=== PATIENT | male | born 2000 | race Asian ===

== ENCOUNTER 2019-04-02 16:05 | Emergency (ER) | payer OTHER ==
--- NOTE | 2019-04-02 16:39 | ED ---
Throat Pain/Nasal Congestion - HPI Summary HPI Summary: Patient complains of swollen lumps in neck 3 weeks, sore throat for 5 days which resolved 3 days ago, and cold symptoms times last 2 days. Denies known fever, neck stiffness, CP, SOB, N/V/D, abdominal pain, change in urine, change in BM. Medical history is none. No home meds - History of Current Complaint Chief Complaint: EDThroatPain Time Seen by Provider: 04/02/19 16:24 Hx Obtained From: Patient Onset/Duration: Gradual Onset, Lasting Weeks Severity: Mild Associated Signs And Symptoms: Positive: Negative Cough: Nonproductive - Allergies/Home Medications Allergies/Adverse Reactions: Allergies Allergy/AdvReac Type Severity Reaction Status Date / Time azithromycin [From Zithromax] Allergy GI Upset Verified 04/02/19 16:11 PMH/Surg Hx/FS Hx/Imm Hx Endocrine/Hematology History: Denies: Hx Anticoagulant Therapy Cardiovascular History: Denies: Hx Pacemaker/ICD GI History: Denies: Hx Cirrhosis History: Denies: Hx Dialysis Sensory History: Denies: Hx Eye Prosthesis Opthamlomology History: Denies: Hx Legally Blind EENT History: Denies: Hx Deafness Neurological History: Denies: Hx Dementia Infectious Disease History: No Infectious Disease History: Denies: Traveled Outside the [place] in Last 30 Days - Family History Known Family History: Positive: Non-Contributory - Social History Alcohol Use: Occasionally Substance Use Type: Reports: None Hx Tobacco Use: No Review of Systems Constitutional: Negative Eyes: Negative Positive: Other Cardiovascular: Negative Positive: Cough Gastrointestinal: Negative Genitourinary: Negative Musculoskeletal: Negative Skin: Negative Neurological/Mental Status: Negative Psychological: Normal All Other Systems Reviewed And Are Negative: Yes Physical Exam - Summary Physical Exam Summary: Swollen bilateral lymph nodes under jaw and along trachea. ENT exam otherwise unremarkable. Triage Information Reviewed: Yes Vital Signs On Initial Exam: Initial Vitals Temp Pulse Resp BP Pulse Ox 97.3 F 84 19 122/75 99 04/02/19 16:08 04/02/19 16:08 04/02/19 16:08 04/02/19 16:08 04/02/19 16:08 Vital Signs Reviewed: Yes Appearance: Positive: Well-Appearing Skin: Positive: Warm Head/Face: Positive: Normal Head/Face Inspection Eyes: Positive: Normal ENT: Positive: Normal ENT inspection Neck: Positive: Supple. Negative: No Lymphadenopathy Respiratory/Lung Sounds: Positive: Clear to Auscultation Cardiovascular: Positive: Normal Abdomen Description: Positive: Nontender Musculoskeletal: Positive: Normal Neurological: Positive: Normal Psychiatric: Positive: Normal AVPU Assessment: Alert - [place] Coma Scale Best Eye Response: 4 - Spontaneous Best Motor Response: 6 - Obeys Commands Best Verbal Response: 5 - Oriented Coma Scale Total: 15 Procedures - Sedation Patient Received Moderate/Deep Sedation with Procedure: No Diagnostics - Vital Signs Vital Signs Temp Pulse Resp BP Pulse Ox 04/02/19 16:08 97.3 F 84 19 122/75 99 - Laboratory Lab Statement: Any lab studies that have been ordered have been reviewed, and results considered in the medical decision making process. EENT Course/Dx - Course Course Of Treatment: Patient complains of swollen lumps in neck 3 weeks, sore throat for 5 days which resolved 3 days ago, and cold symptoms times last 2 days. Denies known fever, neck stiffness, CP, SOB, N/V/D, abdominal pain, change in urine, change in BM. Medical history is none. Vital signs within normal limits. Ultrasound neck positive for normal swollen lymph nodes. - Diagnoses Provider Diagnoses: Swollen lymph nodes Discharge ED - Sign-Out/Discharge Documenting (check all that apply): Patient Departure - Discharge Plan Condition: Stable Disposition: HOME Patient Education Materials: Lymphadenopathy (ED) Referrals: [facility] [Outside] No Primary Care Phys,NOPCP [Primary Care Provider] - Additional Instructions: Follow-up with primary care. Return to the ED for any new or worsening symptoms. - Billing Disposition and Condition Condition: STABLE Disposition: Home - Attestation Statements Provider Attestation: I was available for consultation for this patient. I did not evaluate the patient or participate in any medical decision making or disposition decisions unless I am specifically named in the chart as having consulted on the patient. If I have consulted on the patient, please see my own ED note on the patient encounter. Delta Youssef MD
[2019-04-02 17:01] LABS: Rapid Strep Molecular Negative (Negative)
[2019-04-02 17:59] VITALS: BP 111/68
== END 2019-04-02 17:58 | disposition home or self-care (01) ==
LOC: ED 16:05
DX: R59.0 Localized enlarged lymph nodes (principal); Z88.1 Allergy status to other antibiotic agents
CPT/HCPCS: 76536; 87651; 99281

== ENCOUNTER 2019-04-15 11:41 | Emergency (ER) | payer OTHER ==
--- OUTSIDE RECORDS SUMMARY | 2019-04-15 12:07 | XMS REPORT | Continuity of Care Document ---
:2000 External Reference #:[id number] Author Name Margaret Escobedo PA-C Address [address] [place] [address] Care Team Providers Name Role Phone [facility] Care Team Information Counselling Psychologist Problems Description No Information Available Social History Type Date Description Comments Sex Unknown Tobacco Use Start: Unknown Never Smoked Cigarettes Tobacco Use Start: Unknown Never Smoked Cigars Tobacco Use Start: Unknown Never Smoked A Pipe Smokeless Tobacco Never Used Smokeless Tobacco ETOH Use Denies alcohol use Tobacco Use Start: Unknown Patient has never smoked Smoking Status Reviewed: 03/18/19 Patient has never smoked Allergies, Adverse Reactions, Alerts Description No Known Drug Allergies Medications Active Medications SIG Qnty Indications Ordering Provider Date Clindamycin HCL take 1 pill 3 30caps R59.0 Jamaal Guzmán, 03/19/2019 300mg times a day for MD Capsules 10 days History Medications No Active Medications Unknown 03/19/2019 - 03/19/2019 No Active Medications Unknown 01/11/2019 - 01/11/2019 Ciprodex 4 drops infected 7.500ml Jamaal Degroot 01/11/2019 - 0.3-0.1% ear twice a day MD Ramirez 03/19/2019 Suspension Immunizations Description No Information Available Vital Signs Date Vital Result Comment 03/19/2019 3:17pm Weight 125.00 lb Weight 56.700 kg Height 66 inches 5'6" Height in cm's 167.6 cm BMI (Body Mass Index) 20.2 kg/m2 01/11/2019 1:43pm Weight 125.00 lb Weight 56.700 kg Height 66 inches 5'6" Height in cm's 167.6 cm BMI (Body Mass Index) 20.2 kg/m2 Results Description No Information Available Procedures Description No Information Available Medical Devices Description No Information Available Encounters Type Date Location Provider Dx Diagnosis Office Visit 01/17/2019 [place],After Margaret Escobedo H60.321 Hemorrhagic otitis 9:00a 02/07/07 [place] externa, right ear Office Visit 01/11/2019 [place] Jamaal Degroot H60.321 Hemorrhagic otitis 2:00p 02/07/07 MD Ramirez externa, right ear Assessments Date Code Description Provider 03/19/2019 R59.0 Localized enlarged lymph nodes Margaret Escobedo PA-C 03/19/2019 K13.70 Unspecified lesions of oral mucosa Margaret Escobedo PA-C 01/17/2019 H60.321 Hemorrhagic otitis externa, right ear Margaret Escobedo PA-C 01/11/2019 H60.321 Hemorrhagic otitis externa, right ear Jamaal Guzmán MD Plan of Treatment Future Appointment(s):04/03/2019 3:30 pm - Jamaal Guzmán MD at [facility] [place] MichaelCR59.0 Localized enlarged lymph nodesNew Medication:Clindamycin HCL 300 mg - take 1 pill 3 times a day for 10 daysK13.70 Unspecified lesions of oral mucosaFollow up:[facility] Functional Status Description No Information Available Mental Status Description No Information Available Referrals Description No Information Available
--- OUTSIDE RECORDS SUMMARY | 2019-04-15 12:07 | XMS REPORT | Continuity of Care Document ---
:2000 External Reference #:[id number] Author Name Jamaal Guzmán MD Address [address] [place] [address] Care Team Providers Name Role Phone [facility] Care Team Information Rod Filler [phone] Problems Description No Information Available Social History [...] Date Location Provider Dx Diagnosis Office Visit 04/03/2019 [place] Jamaal Degroot R59.0 Localized enlarged 3:30p 02-07-2019 MD Ramirez lymph nodes K13.70 Unspecified lesions of oral mucosa Office Visit 01/17/2019 [place],After Margaret Escobedo H60.321 Hemorrhagic 9:00a 02/07/07 [facility] otitis externa, right ear Office Visit 01/11/2019 [place] Jamaal Degroot H60.321 Hemorrhagic 2:00p 02/07/07 MD Ramirez otitis externa, right ear Assessments Date Code Description Provider 04/03/2019 R59.0 Localized enlarged lymph nodes Jamaal Guzmán MD 04/03/2019 K13.70 Unspecified lesions of oral mucosa Jamaal Guzmán MD 03/19/2019 R59.0 Localized enlarged lymph nodes Margaret Escobedo PA-C 03/19/2019 K13.70 Unspecified lesions of oral mucosa Margaret Escobedo PA-C 01/17/2019 H60.321 Hemorrhagic otitis externa, right ear Margaret Escobedo PA-C 01/11/2019 H60.321 Hemorrhagic otitis externa, right ear Jamaal Guzmán MD Plan of Treatment No Information Available Functional Status Description No Information Available Mental Status Description No Information Available Referrals Description No Information Available
[2019-04-15 12:41] LABS: Influenza A Molecular Negative (Negative); Influenza B Molecular Negative (Negative)
--- NOTE | 2019-04-15 13:06 | ED ---
Influenza-Like Illness - HPI Summary HPI Summary: This pt is a 18 Y/O M presenting to [facility] with a CC of influenza-like symptoms. He states that on 04/12/2019 he started to feel phlegm in his throat and has had SOB. He states that yesterday 04/14/2019 he became more SOB, developed a fever with chills, sore throat, and a headache. Currently he states that he has aggravating chest tightness when he takes a deep breath. He denies any myalgia, N/V/D, and generalized weakness. He states that he was recently in [facility] and denies any contact with anyone who was sick. He denies any PMHx that is pertinent. He has a FHx of HTN and DM. He denies any travel in the last 30 days. - History of Current Complaint Chief Complaint: EDFluSymptoms Time Seen by Provider: 04/15/19 11:48 Hx Obtained From: Patient Onset/Duration: Sudden Onset - 3, Lasting Days, Still Present Severity: Moderate Associated Signs & Symptoms: Negative - myalgia, N/V/D, and generalized weakness., Fever - 100.3 F, Sore Throat, Headache Related Hx: Possible Flu/Infectious Exposure - States recent visit to [facility] - Allergy/Home Medications Allergies/Adverse Reactions: Allergies Allergy/AdvReac Type Severity Reaction Status Date / Time azithromycin [From Zithromax] Allergy GI Upset Verified 04/15/19 11:45 Home Medications: Home Medications NK [No Home Medications Reported] 04/15/19 [History Confirmed 04/15/19] PMH/Surg Hx/FS Hx/Imm Hx Previously Healthy: Yes Endocrine/Hematology History: Denies: Hx Anticoagulant Therapy, Hx Diabetes Cardiovascular History: Denies: Hx Hypertension, Hx Pacemaker/ICD Respiratory History: Denies: Hx Asthma GI History: Denies: Hx Cirrhosis History: Denies: Hx Dialysis Sensory History: Denies: Hx Eye Prosthesis, Hx Legally Blind, Hx Deafness Opthamlomology History: Denies: Hx Eye Prosthesis, Hx Legally Blind Neurological History: Denies: Hx Dementia - Cancer History Hx Chemotherapy: No Hx Radiation Therapy: No - Surgical History Surgical History: None - Immunization History Immunizations Up to Date: Yes Infectious Disease History: No Infectious Disease History: Denies: Traveled Outside the [place] in Last 30 Days - Family History Known Family History: Positive: Hypertension, Diabetes - Social History Occupation: Student - [employer], [place] Alcohol Use: Occasionally Hx Substance Use: No Substance Use Type: Reports: None Hx Tobacco Use: No Smoking Status (MU): Never Smoked Tobacco Review of Systems Positive: Fever - 100.3 F, Chills Positive: Sore Throat Positive: Chest Pain Positive: Shortness Of Breath Negative: Vomiting, Diarrhea, Nausea Negative: Myalgia Positive: Headache. Negative: Weakness All Other Systems Reviewed And Are Negative: Yes Physical Exam - Summary Physical Exam Summary: VITAL SIGNS: Reviewed. GENERAL: Patient is a well-developed and nourished male who is lying comfortable in the stretcher. Patient is not in any acute respiratory distress. HEAD AND FACE: No signs of trauma. No ecchymosis, hematomas or skull depressions. No sinus tenderness. EYES: PERRLA, EOMI x 2, No injected conjunctiva, no nystagmus. EARS: Hearing grossly intact. Ear canals and tympanic membranes are within normal limits. MOUTH: Oropharynx within normal limits. NECK: Supple, trachea is midline, no adenopathy, no JVD, no carotid bruit, no c- spine tenderness, neck with full ROM. CHEST: Symmetric, no tenderness at palpation. LUNGS: Clear to auscultation bilaterally. No wheezing or crackles. CVS: Regular rate and rhythm, S1 and S2 present, no murmurs or gallops appreciated. ABDOMEN: Soft, non-tender. No signs of distention. No rebound, no guarding, and no masses palpated. Bowel sounds are normal. EXTREMITIES: FROM in all major joints, no edema, no cyanosis or clubbing. NEURO: Alert and oriented x 3. No acute neurological deficits. Speech is normal and follows commands. SKIN: Dry and warm. Triage Information Reviewed: Yes Vital Signs On Initial Exam: Initial Vitals Temp Pulse Resp BP Pulse Ox 100.3 F 99 16 134/69 95 04/15/19 11:43 04/15/19 11:43 04/15/19 11:43 04/15/19 11:43 04/15/19 11:43 Vital Signs Reviewed: Yes Procedures - Sedation Patient Received Moderate/Deep Sedation with Procedure: No Diagnostics - Vital Signs Vital Signs Temp Pulse Resp BP Pulse Ox 04/15/19 11:43 100.3 F 99 16 134/69 95 - Laboratory Lab Results: Lab Results 04/15/19 Range/Units 12:19 Influenza A (Rapid) Negative (Negative) Influenza B (Rapid) Negative (Negative) Lab Statement: Any lab studies that have been ordered have been reviewed, and results considered in the medical decision making process. - Radiology CXR Radiology Interpretation Completed By: Radiologist Summary of Radiographic Findings: No acute cardiopulmonary process by radiograph. ED physician has reviewed this report. Flu Symptom Course/Dx - Course Course Of Treatment: This pt is a 18 Y/O M presenting to [facility] with a CC of influenza-like symptoms. He states that on 04/12/2019 he started to feel phlegm in his throat and has had SOB. He states that yesterday 04/14/2019 he became more SOB, developed a fever with chills, sore throat, and a headache. Currently he states that he has aggravating chest tightness when he takes a deep breath. His PE found no acute abnormalities. CXR: No acute cardiopulmonary process by radiograph. Pt will be discharged home with a Dx of viral syndrome. - Diagnoses Provider Diagnoses: Acute viral syndrome Discharge ED - Sign-Out/Discharge Documenting (check all that apply): Patient Departure - discharge - Discharge Plan Condition: Good Disposition: HOME Patient Education Materials: Viral Syndrome (ED) Forms: *School Release Referrals: [facility] [Provider Group] - 2 Days Additional Instructions: PLEASE FOLLOW UP WITH [facility] IN 1-3 DAYS AND RETURN TO THE EMERGENCY DEPARTMENT FOR ANY NEW OR WORSENING SYMPTOMS. Stay home from school for the next 3 days in order to rest. Drink plenty of fluids and continue eating. - Attestation Statements Document Initiated by Scribe: Yes Documenting Scribe: Kamran Farrell Provider For Whom Scribe is Documenting (Include Credential): Sixto Morrell MD Scribe Attestation: Kamran Rosa, scribed for Sixto Morrell MD on 04/15/19 at 1406. Status of Scribe Document: Ready
[2019-04-15 14:24] VITALS: BP 126/63
== END 2019-04-15 14:23 | disposition home or self-care (01) ==
LOC: ED 11:41
DX: B34.9 Viral infection, unspecified (principal); R51 Headache; R06.02 Shortness of breath; R07.9 Chest pain, unspecified; R50.9 Fever, unspecified; Z88.1 Allergy status to other antibiotic agents
CPT/HCPCS: 71046; 99282

== ENCOUNTER 2019-04-17 00:13 | Emergency (ER) | payer OTHER ==
[2019-04-17 01:19] LABS: Influenza A Molecular Negative (Negative); Influenza B Molecular Negative (Negative)
--- NOTE | 2019-04-17 02:43 | ED ---
Influenza-Like Illness - HPI Summary HPI Summary: Patient is a 18 y/o M presenting to [facility] with complaints of subjective fever, cough, congestion. He states that he experienced onset of congestion on 04/12/19, cough and fever on 04/15/19. Patient was evaluated at [facility] on 04/15/19 for his Sx, patient's influenza testing was negative, CXR was negative. Patient was discharged to home with Dx of viral syndrome. Patient returns today as he states that he still feels feverish. He has not measured his temperature and no fever noted on initial vitals. No decreased PO intake reported. Patient states that he travelled to [facility] last week and is concerned that he was exposed to the novel coronavirus. No PMHx, no daily medications, no PSHx, no tobacco, alcohol, or substance usage is reported. Home medications and allergies are reviewed. - History of Current Complaint Chief Complaint: EDUpperRespComplaint Time Seen by Provider: 04/17/19 02:07 Hx Obtained From: Patient Onset/Duration: Lasting Days Severity: Mild Associated Signs & Symptoms: Fever, Cough, Nasal Congestion - Allergy/Home Medications Allergies/Adverse Reactions: Allergies Allergy/AdvReac Type Severity Reaction Status Date / Time azithromycin [From Zithromax] AdvReac Mild GI Upset Verified 04/17/19 02:05 Home Medications: Home Medications NK [No Home Medications Reported] 04/15/19 [History Confirmed 04/17/19] PMH/Surg Hx/FS Hx/Imm Hx Endocrine/Hematology History: Denies: Hx Anticoagulant Therapy, Hx Diabetes Cardiovascular History: Denies: Hx Hypertension, Hx Pacemaker/ICD Respiratory History: Denies: Hx Asthma GI History: Denies: Hx Cirrhosis History: Denies: Hx Dialysis Sensory History: Denies: Hx Eye Prosthesis, Hx Legally Blind, Hx Deafness Opthamlomology History: Denies: Hx Eye Prosthesis, Hx Legally Blind Neurological History: Denies: Hx Dementia - Cancer History Hx Chemotherapy: No Hx Radiation Therapy: No Infectious Disease History: No Infectious Disease History: Denies: Traveled Outside the [place] in Last 30 Days - Family History Known Family History: Positive: Hypertension, Diabetes - Social History Alcohol Use: Occasionally Hx Substance Use: No Substance Use Type: Reports: None Hx Tobacco Use: No Smoking Status (MU): Never Smoked Tobacco - Additional Comments History Additional Comments: No PMHx No PSHx Review of Systems Positive: Fever - reported, no fever based off of initial vitals Positive: Other - Congestion Positive: Cough Gastrointestinal: Other - negative - decreased PO intake All Other Systems Reviewed And Are Negative: Yes Physical Exam - Summary Physical Exam Summary: General: Well-developed, Well-nourished male. No acute distress. HEENT: Normocephalic, Atraumatic. Eyes: Conjuctiva normal, PERRL. Oropharynx: Clear, mucous membranes moist, (-) exudates. Neck: Soft, FROM, (-) lymphadenopathy, (-) thyromegaly, (-) JVD. Cardiovascular: Normal sinus rhythm, (-) murmur. Lungs: Clear to auscultation bilaterally (-) wheezes, (-) rales, (-) rhonchi. Abdomen: Soft, non-tender, non-distended, (-) organomegaly, normal bowel sounds. Back: (-) CVA tenderness Extremities: No edema. Skin: Warm, dry, (-) rash. Neuro: Alert and oriented x3, moves all extremities equally. No ataxia. No gait disturbance. No sensory deficit. Normal strength, normal sensation. Psychiatric: Mood normal, affect normal. Triage Information Reviewed: Yes Vital Signs On Initial Exam: Initial Vitals Temp Pulse Resp BP Pulse Ox 98.2 F 74 15 124/88 97 04/17/19 00:14 04/17/19 00:14 04/17/19 00:14 04/17/19 00:14 04/17/19 00:14 Vital Signs Reviewed: Yes Procedures - Sedation Patient Received Moderate/Deep Sedation with Procedure: No Diagnostics - Vital Signs Vital Signs Temp Pulse Resp BP Pulse Ox 04/17/19 00:14 98.2 F 74 15 124/88 97 - Laboratory Lab Results: Lab Results 04/17/19 Range/Units 01:00 Influenza A (Rapid) Negative (Negative) Influenza B (Rapid) Negative (Negative) Lab Statement: Any lab studies that have been ordered have been reviewed, and results considered in the medical decision making process. Flu Symptom Course/Dx - Course Course Of Treatment: 18-year-old male presents with concerns of possible exposure to [place] virus. He states he was in [facility] last Tuesday and Tuesday. That was 7 and 8 days ago. States he rode the train. Is concerned about his exposure to someone who may have come down with Coronavirus since then. No known definitive exposure. He states he is congested now feels feverish. Cough. Was seen here yesterday with a temperature of 100.3. Discharged home with viral syndrome. He states he still feels poorly. [place] feverish tonight so came in to be checked again. Patient has not taken anything for his symptoms. Upon arrival he is afebrile. no vomiting or diarrhea. Exam is normal. Discussed with patient at length. He does not meet any criteria for chronic virus testing. He was diagnosed with a viral URI. Discharged to home. Advised Tylenol or ibuprofen as needed. Plenty of rest and fluids. Follow-up with PCP. Follow-up sooner for any worsening symptoms. - Diagnoses Provider Diagnoses: Viral syndrome Discharge ED - Sign-Out/Discharge Documenting (check all that apply): Patient Departure - discharge - Discharge Plan Condition: Stable Disposition: HOME Patient Education Materials: Viral Syndrome (ED) Referrals: Ren Escobedo MD [Primary Care Provider] - 3 Days Additional Instructions: PLEASE RETURN TO ED FOR ANY NEW OR WORSENING SYMPTOMS. PLEASE FOLLOW UP WITH YOUR PRIMARY CARE PHYSICIAN WITHIN THREE DAYS. - Billing Disposition and Condition Condition: STABLE Disposition: Home - Attestation Statements Document Initiated by [place]: Yes Documenting Scribe: DARYL MEEHAN Provider For Whom Israel is Documenting (Include Credential): MASSIEL RODGERS MD Scribe Attestation: DARYL Rosa, scribed for MASSIEL RODGERS MD on 04/17/19 at 0508. Scribe Documentation Reviewed: Yes Provider Attestation: The documentation as recorded by the DARYL hood accurately reflects the service I personally performed and the decisions made by me, MASSIEL RODGERS MD Status of Scribe Document: Viewed
[2019-04-17 02:59] VITALS: BP 122/78
== END 2019-04-17 02:58 | disposition home or self-care (01) ==
LOC: ED 00:13
DX: B34.9 Viral infection, unspecified (principal); R50.9 Fever, unspecified; R05 Cough; R09.81 Nasal congestion
CPT/HCPCS: 99282